=== PATIENT | female | born 1980 | race Caucasian/White ===

== ENCOUNTER → 2023-11-16 12:04 | Outpatient (REF) | payer BC, SELFPAY | LOC: WDC 12:04 | PROVIDERS: ATTENDING PHYSICIAN Obstetrics & Gynecology; FAMILY PHYSICIAN Internal Medicine | DX: Z12.31 Encounter for screening mammogram for malignant neoplasm of breast (principal) | CPT/HCPCS: 77063; 77067 ==

== ENCOUNTER → 2023-12-01 13:45 | Outpatient (REF) | payer BC, SELFPAY | LOC: WDC 13:45 | PROVIDERS: ATTENDING PHYSICIAN Obstetrics & Gynecology; FAMILY PHYSICIAN Internal Medicine | DX: R92.2 Inconclusive mammogram (principal) | CPT/HCPCS: 76641 ==

== ENCOUNTER → 2024-11-17 11:55 | Outpatient (REF) | payer BC, SELFPAY | LOC: WDC 11:55 | PROVIDERS: ATTENDING PHYSICIAN Obstetrics & Gynecology; FAMILY PHYSICIAN Internal Medicine | DX: Z12.31 Encounter for screening mammogram for malignant neoplasm of breast (principal) | CPT/HCPCS: 77063; 77067 ==